=== PATIENT | female | born 1965 | race Two or more races ===

== ENCOUNTER 2016-06-11 13:31 | Emergency (ER) | payer OTHER ==
[~2016-06-11] VITALS: Ht 162.6 cm; Wt 74.8 kg
[~2016-06-11 13:31] MED LIST: IBUPROFEN600 MG ORAL; LEVOFLOXACIN500 MG ORAL; LEVOTHYROXINE75 MCG ORAL; PREDNISONE5 M4 PO; PROAIR HFA8.5 GM INH; PROMETHAZINE-C118 M1 ORAL; TRAMADOL HCL50 MG ORAL
--- NOTE | 2016-06-11 14:12 | Emergency Room Report ---
History of Present Illness General Chief Complaint: Dizziness Source: Patient Present Illness [facility] This is a 50-year-old female who presented after increased dizziness. Dizziness is worse with head movement. Patient had intermittent episodes of the past 2 days. Patient had an increase dizziness with movement of her head to the right. Patient denied any fever or chest pain. Patient had not been vomiting. She denied any tinnitus. She denied prior history of hypertension or diabetes. She had gradual onset of symptoms. Allergies: Coded Allergies: No Known Allergies (Unverified , 02/09/16) Patient History Past Medical History: see triage record Last Menstrual Period: na Reviewed Nursing Documentation: PMH: Agreed, PSxH: Agreed Nursing Documentation-PMH Past Medical History: No History, Except For Review of Systems All Other Systems: negative except mentioned in HPI Physical Exam Vital Signs Date Time Temp Pulse Resp B/P Pulse Ox O2 Delivery O2 Flow Rate FiO2 06/11/16 13:43 98.8 88 18 111/71 98 Sp02 EP Interpretation: reviewed, normal General Appearance: normal inspection, well appearing, no apparent distress, alert, GCS 15 Head: atraumatic ENT: normal ENT inspection, hearing grossly normal, normal voice, other - vertigo Neck: normal inspection, full range of motion, supple, no bony tend Respiratory: normal inspection, lungs clear, normal breath sounds, no respiratory distress, no retraction, no wheezing Cardiovascular #1: regular rate, rhythm, no edema Gastrointestinal: normal inspection, normal bowel sounds, non tender, soft, no guarding, no hernia Genitourinary: no CVA tenderness Musculoskeletal: normal inspection, back normal, normal range of motion Neurologic: normal inspection, alert, oriented x3, responsive, 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 Differential diagnosis included was not limited to CVA, vertebrobasilar insufficiency, myocardial infarction, benign positional vertigo, labyrinthitis, aspirin overdose among others. EKG interpreted by me showed normal sinus rhythm with a rate of [address] or T wave changes. The patient was given Zofran. The patient has exam consistent with peripheral vertigo likely do to benign positional vertigo. Patient was given oral meclizine. Patient had improvement in symptoms.CT the head read by radiology showed no acute hemorrhage or CVA. A urinalysis showed no definite infection and appears to be somewhat contaminated. The patient will not be treated until culture results are available.The patient is advised to follow up with primary care doctor in 1-2 days. Patient is advised to return if any worsening condition or if any changes in status that are concerning. Laboratory Tests Test 06/11/16 15:30 Urine Color Pale yellow Urine Appearance Clear Urine pH 7 (4.5-8.0) Urine Specific [place] 1.005 (1.005-1.035) Urine Protein Negative (NEGATIVE) Urine Glucose (UA) Negative (NEGATIVE) Urine Ketones Negative (NEGATIVE) Urine Occult Blood Negative (NEGATIVE) Urine Nitrite Negative (NEGATIVE) Urine Bilirubin Negative (NEGATIVE) Urine Urobilinogen Normal MG/DL (0.0-1.0) Urine Leukocyte Esterase 2+ (NEGATIVE) H Urine RBC 0-2 /HPF (0 - 2) Urine WBC 2-4 /HPF (0 - 2) Urine Squamous Epithelial Cells Few /LPF (NONE/OCC) Urine Bacteria None /HPF (NONE) Last Vital Signs Date Time Temp Pulse Resp B/P Pulse Ox O2 Delivery O2 Flow Rate FiO2 06/11/16 13:43 98.8 88 18 111/71 98 Status: improved Disposition: HOME, SELF-CARE Condition: Stable Scripts Ondansetron (Zofran) 4 Mg Tablet 4 MG ORAL Q6H Y for Nausea & Vomiting, #20 TAB 0 Refills Prov: Nabeel Luis 06/11/16 Meclizine Hcl* (MECLIZINE*) 25 Mg Tablet 25 MG ORAL THREE TIMES A DAY, #20 TAB Prov: Nabeel Luis 06/11/16 Nabeel Luis Jun 11, 2016 14:12
[2016-06-11] MEDS ORDERED: Meclizine 25mg tab ORAL ONE ×2 (14:15)
[2016-06-11] MEDS ORDERED: ZOFRAN4 MG ORAL (15:17)
[2016-06-11] MEDS ORDERED: MECLIZINE HCL25 MG ORAL (15:17)
[2016-06-11 15:28] VITALS: BP_SYST 118; BP_SYST 121; BP_SYST 129; BP_DIAS 78; BP_DIAS 79; BP_DIAS 86
[2016-06-11 15:30] VITALS: BP 118/78
[2016-06-11 15:57] LABS: APPEARANCE,URINE CLEAR; KETONES,URINE NEGATIVE (NEGATIVE); LEUKOCYTE ESTERASE ,URINE 2+ (NEGATIVE); NITRITE,URINE NEGATIVE (NEGATIVE); PH,URINE 7 (4.5-8.0); PROTEIN,URINE NEGATIVE (NEGATIVE); UROBILINOGEN,URINE NORMAL MG/DL (0.0-1.0)
[2016-06-11 16:05] LABS: RBC,URINE 0-2 /HPF (0 - 2); SQUAMOUS EPITHELIAL CELL,UR FEW /LPF (NONE/OCC)
--- NOTE | 2016-06-12 08:45 | Diagnostic Imaging Report ---
Indication: WEAK, dizziness Technique: Continuous helical CT scanning of the head was performed without intravenous contrast material. Axial and coronal 5 mm sections were generated. Radiation dose was minimized using automated exposure control Dose: Total Dose Length Product - DLP [address] Dose Index - CTDIvol(s) 70.38 mGy. Comparison: None Findings: The ventricular system is normal in size and configuration. There is no shift of midline structures. No abnormal extra-axial fluid collections are noted. There is no evidence of intracerebral bleeding. No other abnormal high or low density areas are noted within the brain. Impression: Normal CT scan of the head without contrast material. This agrees with the preliminary interpretation provided overnight by Dr. Sierra The CT scanner at [facility] is accredited by the [employer] and the scans are performed using protocols designed to limit radiation exposure to as low as reasonably achievable to attain images of sufficient resolution adequate for diagnostic evaluation.
--- NOTE | 2016-06-12 12:18 | Cardiology Report ---
APPROVED REPORT EKG Measurement Heart [id number] Normal sinus rhythm Normal ECG
== END 2016-06-11 15:30 | disposition home or self-care (01) ==
LOC: EMR 14:05
DX: H81.10 Benign paroxysmal vertigo, unspecified ear (principal)
CPT/HCPCS: 70450; 81003; 93005; 99284